=== PATIENT | female | born 1990 | race Caucasian/White ===

== ENCOUNTER 2016-07-29 11:06 | Outpatient (CLI) | payer BC ==
--- NOTE | 2016-07-29 13:04 | MRI Report ---
EXAM: RIGHT KNEE MRI WITHOUT CONTRAST EXAM DATE: 07/29/2016 12:00 PM. CLINICAL HISTORY: PERSISTENT R POSTERIOR KNEE PAIN. COMPARISON: None. TECHNIQUE: Multiplanar, multisequence T1-weighted and fluid-sensitive sequences of the knee without c ontrast. Other: None. FINDINGS: Bones: No fractures or subluxations. No marrow edema. No bone lesions. Articular Cartilage: Unremarkable. Medial Meniscus: The medial meniscus is intact. Lateral Meniscus: The lateral meniscus is intact. Cruciate Ligaments: The anterior and posterior cruciate ligaments are intact. Collateral Ligaments: The medial collateral and lateral collateral ligamentous structures are intact. Tendons: The quadriceps, patellar, semimembranosus, and popliteus tendons are unremarkable. Musculature: No edema or fatty atrophy. Other: No effusion. No popliteal cyst. No loose bodies. The medial and lateral retinacula, patellofe moral ligaments and iliotibial band are intact. No bursitis. The subcutaneous tissues and fat pads a re unremarkable. IMPRESSION: No MRI abnormalities are demonstrated in the right knee to account for the symptom. [facility]CULOS[facility] SECTION Referring Provider Line: [phone] SITE ID: [id number]
== END 2016-07-29 11:07 | disposition home or self-care (01) ==
LOC: DI 11:06
PROVIDERS: ATTEND Internal Medicine
DX: M25.561 Pain in right knee (principal)